=== PATIENT | female | born 1995 | race Caucasian/White ===

== ENCOUNTER 2023-09-15 03:37 | Emergency (ER) | payer BC | END 2023-09-15 03:43 | disposition left against medical advice (07) | LOC: NAV ERS 03:37 | DX: Z53.21 Procedure and treatment not carried out due to patient leaving prior to being seen by health care provider (principal) ==

== ENCOUNTER 2023-12-12 03:45 | Emergency (ER) | payer BC ==
[2023-12-12] MEDS ORDERED: Albuterol 2.5 MG (3 mL) NEB ONE (04:23)
[2023-12-12 04:36] LABS: SARS-CoV-2 E Target Negative; SARS-CoV-2 N2 Target Negative; SARS-CoV-2 NAA Rapid Test Not Detected (NotDetected); SARS-CoV-2 RdRP gene Negative
[2023-12-12] MEDS ORDERED: Azithromycin 250 MG TAB ONE (05:35)
== END 2023-12-12 05:55 | disposition home or self-care (01) ==
LOC: NAV ERS 03:45
DX: O99.512 Diseases of the respiratory system complicating pregnancy, second trimester (principal); J18.9 Pneumonia, unspecified organism; Z3A.21 21 weeks gestation of pregnancy
CPT/HCPCS: 71046; 87804; 94640; J7611; U0002